=== PATIENT | female | born 1950 | race Native Hawaiian/Other Pacific Islander ===

== ENCOUNTER 2016-06-17 14:32 | Outpatient (CLI) | payer OTHER ==
[~2016-06-17 14:32] MED LIST: AMBILIFY PO; AMLO10TA PO; AMLO2.5T PO; AMOX500C85 PO; ASA LO-DOSE81 MG OR; ATEN50TA36 PO; BACL10TA4 PO; CLON0.5T36 PO; CLOP75TA2 PO; CYCL10TA35 PO; DENO60SO SC; GEODON60 MG PO; HYDR-3182 PO; HYDR25CA25 PO; HYDR25TA60 PO; MUPI2OIN2 TOP; MYRBETRIQ50 MG PO; NEXIUM40 M1 OR; OLAN2.5T2 PO; OLAN5TAB4 PO; ROBAXIN500 MG PO; SIMV40TA57; TOPAMAX100 MG OR; TOVIAZ 8MG8 MG PO; TRAM50TA PO; TRICOR48 MG PO; WELLBUTRIN150 MG PO; ZOLP10TA2 PO
[2016-06-17 15:35] LABS: PLATELET COUNT 260 K/uL (152-353)
[2016-06-17 16:41] LABS: POTASSIUM 3.8 mmol/L (3.6-5.2); SODIUM 139 mmol/L (136-145)
== END 2016-06-17 19:11 | disposition home or self-care (01) ==
LOC: LAB 14:32
PROVIDERS: Nurse Practitioner Family
DX: I10 Essential (primary) hypertension (principal); I50.9 Heart failure, unspecified; J44.1 Chronic obstructive pulmonary disease with (acute) exacerbation; E78.4 Other hyperlipidemia; Z79.899 Other long term (current) drug therapy; R11.2 Nausea with vomiting, unspecified
CPT/HCPCS: 80053; 80061; 83036; 84439; 84443; 85027; 86677

== ENCOUNTER 2016-08-01 08:03 | Outpatient (CLI) | payer OTHER ==
[~2016-08-01] VITALS: Ht 154.9 cm; Wt 103.0 kg
[2016-08-01 08:32] VITALS: BP 159/85; TEMP 98.7
== END 2016-08-01 10:00 | disposition home or self-care (01) ==
LOC: INF 08:03
DX: M81.0 Age-related osteoporosis without current pathological fracture (principal)
CPT/HCPCS: 36415; 82310; 96372; J0897

== ENCOUNTER 2016-09-27 11:14 | Emergency (ER) | payer OTHER ==
[~2016-09-27] VITALS: Ht 154.9 cm; Wt 99.8 kg
[2016-09-27 11:28] VITALS: TEMP 98.7
[2016-09-27 12:36] LABS: PLATELET COUNT 262 K/uL (152-353)
[2016-09-27 12:41] LABS: POTASSIUM 4.4 mmol/L (3.6-5.2); SODIUM 140 mmol/L (136-145)
[2016-09-27 13:28] VITALS: BP 158/70
== END 2016-09-27 13:55 | disposition home or self-care (01) ==
LOC: ED 11:14
PROVIDERS: Specialist
DX: N10 Acute pyelonephritis (principal); N20.0 Calculus of kidney
CPT/HCPCS: 36415; 80053; 81000; 85027; 87086; 87088; 96366; 96375; 99284; J0690; J1885

== ENCOUNTER 2016-09-29 14:05 | Outpatient (CLI) | payer OTHER ==
[2016-09-29 15:01] LABS: PLATELET COUNT 274 K/uL (152-353)
[2016-09-29 15:24] LABS: POTASSIUM 4.1 mmol/L (3.6-5.2); SODIUM 141 mmol/L (136-145)
== END 2016-09-29 19:19 | disposition home or self-care (01) ==
LOC: LAB 14:05
PROVIDERS: Nurse Practitioner Family
DX: E87.6 Hypokalemia (principal); I10 Essential (primary) hypertension; I50.9 Heart failure, unspecified; J44.1 Chronic obstructive pulmonary disease with (acute) exacerbation; E78.4 Other hyperlipidemia; E55.9 Vitamin D deficiency, unspecified; Z79.899 Other long term (current) drug therapy; Z51.81 Encounter for therapeutic drug level monitoring
CPT/HCPCS: 80053; 80061; 82306; 82607; 83036; 84436; 84443; 85027

== ENCOUNTER 2016-10-28 08:40 | Outpatient (CLI) | payer OTHER | END 2016-10-28 09:40 | disposition home or self-care (01) | LOC: LABW 08:40 | PROVIDERS: Physical Medicine & Rehabilitation Pain Medicine | DX: Z79.891 Long term (current) use of opiate analgesic (principal) | CPT/HCPCS: 36415; 80053 ==

== ENCOUNTER 2016-11-29 12:54 | Outpatient (CLI) | payer OTHER ==
[2016-11-29 13:54] LABS: PLATELET COUNT 267 K/uL (152-353)
== END 2016-11-29 13:55 | disposition home or self-care (01) ==
LOC: LAB 12:54
PROVIDERS: Nurse Practitioner Family
DX: N93.8 Other specified abnormal uterine and vaginal bleeding (principal)
CPT/HCPCS: 80053; 85027

== ENCOUNTER 2017-01-13 08:51 | Outpatient (CLI) | payer OTHER ==
[2017-01-13 09:43] LABS: POTASSIUM 3.7 mmol/L (3.6-5.2)
== END 2017-01-13 09:55 | disposition home or self-care (01) ==
LOC: LABW 08:51
PROVIDERS: Physical Medicine & Rehabilitation Pain Medicine
DX: Z79.891 Long term (current) use of opiate analgesic (principal); Z51.81 Encounter for therapeutic drug level monitoring
CPT/HCPCS: 36415; 80053

== ENCOUNTER 2017-02-20 09:41 | Outpatient (CLI) | payer OTHER ==
[2017-02-20 11:25] LABS: PLATELET COUNT 305 K/uL (152-353)
[2017-02-20 17:32] LABS: POTASSIUM 4.1 mmol/L (3.6-5.2)
== END 2017-02-20 19:16 | disposition home or self-care (01) ==
LOC: LABW 09:41
PROVIDERS: Psychiatry & Neurology Psychiatry
DX: F31.5 Bipolar disorder, current episode depressed, severe, with psychotic features (principal); F41.8 Other specified anxiety disorders; Z79.899 Other long term (current) drug therapy; Z51.81 Encounter for therapeutic drug level monitoring
CPT/HCPCS: 36415; 80053; 80061; 84443; 85027

== ENCOUNTER 2017-03-28 08:45 | Outpatient (CLI) | payer OTHER ==
[~2017-03-28] VITALS: Ht 154.9 cm; Wt 103.0 kg
[2017-03-28 09:54] VITALS: BP 137/75; TEMP 98.2
== END 2017-03-28 09:55 | disposition home or self-care (01) ==
LOC: INF 08:45
DX: M81.0 Age-related osteoporosis without current pathological fracture (principal)
CPT/HCPCS: 36415; 82310; 96372; J0897

== ENCOUNTER 2017-04-26 13:52 | Outpatient (CLI) | payer OTHER | END 2017-04-26 19:25 | disposition home or self-care (01) | LOC: LABW 13:52 | DX: R10.84 Generalized abdominal pain (principal); R19.7 Diarrhea, unspecified; R11.0 Nausea; I10 Essential (primary) hypertension; K64.8 Other hemorrhoids | CPT/HCPCS: 87015; 87045; 87324; 87328; 87329; 87449; 87899 ==

== ENCOUNTER 2017-05-17 16:13 | Outpatient (CLI) | payer OTHER | END 2017-05-17 21:49 | disposition home or self-care (01) | LOC: LABW 16:13 | DX: R19.7 Diarrhea, unspecified (principal); A04.71 Enterocolitis due to Clostridium difficile, recurrent | CPT/HCPCS: 87324; 87449 ==

== ENCOUNTER 2017-08-21 06:58 | Outpatient (CLI) | payer OTHER | END 2017-08-21 19:46 | disposition home or self-care (01) | LOC: LABW 06:58 | DX: Z79.899 Other long term (current) drug therapy (principal); Z51.81 Encounter for therapeutic drug level monitoring; F31.5 Bipolar disorder, current episode depressed, severe, with psychotic features | CPT/HCPCS: 36415; 80164 ==

== ENCOUNTER 2017-10-03 10:14 | Outpatient (CLI) | payer OTHER ==
[2017-10-03 10:40] LABS: POTASSIUM 3.9 mmol/L (3.6-5.2)
== END 2017-10-03 19:30 | disposition home or self-care (01) ==
LOC: LABW 10:14
PROVIDERS: Physical Medicine & Rehabilitation Pain Medicine
DX: Z79.899 Other long term (current) drug therapy (principal); Z51.81 Encounter for therapeutic drug level monitoring
CPT/HCPCS: 36415; 80053

== ENCOUNTER 2017-10-10 13:30 | Outpatient (CLI) | payer OTHER ==
[2017-10-10 13:54] LABS: PLATELET COUNT 291 K/uL (152-353)
[2017-10-10 14:24] LABS: POTASSIUM 4.5 mmol/L (3.6-5.2)
== END 2017-10-10 23:42 | disposition home or self-care (01) ==
LOC: LAB 13:30
PROVIDERS: Nurse Practitioner Family
DX: I10 Essential (primary) hypertension (principal); J44.1 Chronic obstructive pulmonary disease with (acute) exacerbation; E78.4 Other hyperlipidemia; F41.8 Other specified anxiety disorders; K21.9 Gastro-esophageal reflux disease without esophagitis; Z79.899 Other long term (current) drug therapy; Z51.81 Encounter for therapeutic drug level monitoring
CPT/HCPCS: 80053; 80061; 81000; 82306; 83036; 84436; 84443; 85027

== ENCOUNTER 2017-11-09 09:42 | Outpatient (CLI) | payer OTHER ==
[~2017-11-09] VITALS: Ht 154.9 cm; Wt 103.0 kg
== END 2017-11-09 19:16 | disposition home or self-care (01) ==
LOC: INF 09:42
DX: M81.0 Age-related osteoporosis without current pathological fracture (principal)
CPT/HCPCS: 36415; 82310; 96372; J0897

== ENCOUNTER 2018-01-15 08:21 | Outpatient (CLI) | payer OTHER ==
[2018-01-15 08:32] LABS: PLATELET COUNT 270 K/uL (152-353)
[2018-01-15 08:53] LABS: POTASSIUM 3.8 mmol/L (3.6-5.2)
== END 2018-01-15 19:19 | disposition home or self-care (01) ==
LOC: LABW 08:21
PROVIDERS: Psychiatry & Neurology Psychiatry
DX: F31.0 Bipolar disorder, current episode hypomanic (principal); F41.9 Anxiety disorder, unspecified; Z79.899 Other long term (current) drug therapy
CPT/HCPCS: 36415; 80053; 80061; 84443; 85027

== ENCOUNTER 2018-01-29 14:05 | Outpatient (CLI) | payer OTHER ==
[2018-01-29 15:28] LABS: PLATELET COUNT 263 K/uL (152-353)
[2018-01-29 15:49] LABS: POTASSIUM 3.9 mmol/L (3.6-5.2)
== END 2018-01-29 19:51 | disposition home or self-care (01) ==
LOC: LAB 14:05
PROVIDERS: Nurse Practitioner Family
DX: K21.9 Gastro-esophageal reflux disease without esophagitis (principal); E78.5 Hyperlipidemia, unspecified; I10 Essential (primary) hypertension; Z00.00 Encounter for general adult medical examination without abnormal findings; Z79.899 Other long term (current) drug therapy; R53.82 Chronic fatigue, unspecified; E55.9 Vitamin D deficiency, unspecified
CPT/HCPCS: 80053; 80061; 82306; 83036; 84439; 84443; 85027

== ENCOUNTER 2018-03-15 07:21 | Outpatient (CLI) | payer OTHER | END 2018-03-15 22:29 | disposition home or self-care (01) | LOC: LABW 07:21 | PROVIDERS: Nurse Practitioner Adult Health | DX: E78.2 Mixed hyperlipidemia (principal); I25.10 Atherosclerotic heart disease of native coronary artery without angina pectoris; Z79.899 Other long term (current) drug therapy | CPT/HCPCS: 36415; 80061; 80076 ==

== ENCOUNTER 2018-05-14 23:29 | Emergency (ER) | payer OTHER ==
[~2018-05-14] VITALS: Ht 154.9 cm; Wt 97.1 kg
[2018-05-15 01:21] VITALS: BP 151/72; TEMP 97.9
== END 2018-05-15 01:22 | disposition home or self-care (01) ==
LOC: ED 23:29
DX: R07.89 Other chest pain (principal); R07.81 Pleurodynia; W18.39XA Other fall on same level, initial encounter; Y92.89 Other specified places as the place of occurrence of the external cause
CPT/HCPCS: 96372; 99282; J1885

== ENCOUNTER 2018-05-23 07:20 | Outpatient (CLI) | payer OTHER | END 2018-05-23 19:07 | disposition home or self-care (01) | LOC: LAB 07:20 | PROVIDERS: Specialist | DX: E78.2 Mixed hyperlipidemia (principal); Z79.899 Other long term (current) drug therapy | CPT/HCPCS: 36415; 80061; 80076 ==

== ENCOUNTER 2018-05-29 08:54 | Outpatient (CLI) | payer OTHER ==
[~2018-05-29] VITALS: Ht 154.9 cm; Wt 103.0 kg
[2018-05-29 09:00] VITALS: BP 144/69; TEMP 98
== END 2018-05-29 09:40 | disposition home or self-care (01) ==
LOC: INF 08:54
DX: M81.0 Age-related osteoporosis without current pathological fracture (principal)
CPT/HCPCS: 36415; 82310; 96372; J0897

== ENCOUNTER 2018-06-18 09:14 | Outpatient (CLI) | payer OTHER ==
[2018-06-18 09:53] LABS: POTASSIUM 3.9 mmol/L (3.6-5.2)
== END 2018-06-18 22:57 | disposition home or self-care (01) ==
LOC: LABW 09:14
PROVIDERS: Physical Medicine & Rehabilitation Pain Medicine
DX: Z79.899 Other long term (current) drug therapy (principal)
CPT/HCPCS: 36415; 80053

== ENCOUNTER 2018-08-03 09:39 | Outpatient (CLI) | payer OTHER | END 2018-08-03 23:19 | disposition home or self-care (01) | LOC: MAMMO 09:39 | DX: Z12.31 Encounter for screening mammogram for malignant neoplasm of breast (principal) ==

== ENCOUNTER 2018-10-24 05:32 | Outpatient (CLI) | payer OTHER ==
[2018-10-24 05:58] LABS: PLATELET COUNT 293 K/uL (152-353)
[2018-10-24 17:08] LABS: POTASSIUM 3.8 mmol/L (3.6-5.2)
== END 2018-10-24 19:26 | disposition home or self-care (01) ==
LOC: LABW 05:32
PROVIDERS: Psychiatry & Neurology Psychiatry
DX: F31.0 Bipolar disorder, current episode hypomanic (principal); F41.8 Other specified anxiety disorders; Z79.899 Other long term (current) drug therapy
CPT/HCPCS: 36415; 80053; 80061; 84443; 85027

== ENCOUNTER 2018-11-02 12:15 | Outpatient (CLI) | payer OTHER | END 2018-11-02 21:02 | disposition home or self-care (01) | LOC: RAD 12:15 | DX: M51.36 Other intervertebral disc degeneration, lumbar region (principal) ==

== ENCOUNTER 2018-12-04 10:33 | Outpatient (CLI) | payer OTHER ==
[~2018-12-04] VITALS: Ht 154.9 cm; Wt 103.0 kg
[2018-12-04 10:40] VITALS: BP 142/78; TEMP 98.3
== END 2018-12-04 19:47 | disposition home or self-care (01) ==
LOC: INF 10:33
DX: M81.0 Age-related osteoporosis without current pathological fracture (principal)
CPT/HCPCS: 36415; 82310; 96372; J0897

== ENCOUNTER 2018-12-11 09:10 | Outpatient (CLI) | payer OTHER | END 2018-12-11 23:36 | disposition home or self-care (01) | LOC: LABW 09:10 | PROVIDERS: Nurse Practitioner Adult Health | DX: I25.10 Atherosclerotic heart disease of native coronary artery without angina pectoris (principal); E78.2 Mixed hyperlipidemia; Z79.899 Other long term (current) drug therapy | CPT/HCPCS: 36415; 80061; 80076 ==

== ENCOUNTER 2019-02-01 13:27 | Inpatient (IN) | payer OTHER ==
[~2019-02-01] VITALS: Ht 154.9 cm; Wt 99.4 kg
[2019-02-01 13:36] VITALS: BP 177/94; TEMP 98.5
[2019-02-01 14:14] LABS: PLATELET COUNT 413 K/uL (152-353)
[2019-02-01 14:20] LABS: POTASSIUM 3.5 mmol/L (3.6-5.2)
[2019-02-01 14:59] VITALS: BP 133/85
[2019-02-01 16:00] VITALS: BP 98/81; TEMP 98.4
[2019-02-01 16:55] VITALS: BP 98/81; TEMP 98.4; Ht 154.9 cm; Wt 99.4 kg
[2019-02-01 20:46] VITALS: BP 156/84; TEMP 97.9
[2019-02-01 23:52] VITALS: BP 152/88; TEMP 98.1
[2019-02-02] MEDS ORDERED: NEXIUM40 M1 PO (03:37)
[2019-02-02] MEDS ORDERED: LEVO0.0218 PO (03:38)
[2019-02-02] MEDS ORDERED: LISI10TA11 PO (03:39)
[2019-02-02] MEDS ORDERED: [UNRECOGNIZED DRUG - OTHER] PO (03:41)
[2019-02-02] MEDS ORDERED: METO-837 PO (03:41)
[2019-02-02] MEDS ORDERED: SEROQUEL XR300 MG PO (03:43)
[2019-02-02] MEDS ORDERED: ROPINIROLE1 MG PO (03:45)
[2019-02-02] MEDS ORDERED: AMBIEN5 MG PO (03:46)
[2019-02-02] MEDS ORDERED: TRAMADOL HCL100 MG PO ×2 (03:47→15:46)
[2019-02-02] MEDS ORDERED: BACLOFEN5 MG PO ×2 (03:48→15:39)
[2019-02-02] MEDS ORDERED: PROBIOTI1 PO (03:50)
[2019-02-02] MEDS ORDERED: VIT C/ACEROL500 MG PO (03:52)
[2019-02-02] MEDS ORDERED: D31000 UNIT PO (03:53)
[2019-02-02] MEDS ORDERED: FOLIC ACID400 MCG PO (03:57)
[2019-02-02] MEDS ORDERED: [UNRECOGNIZED DRUG - OTHER] PO (03:58)
[2019-02-02 04:00] VITALS: BP 161/50; TEMP 98.9
[2019-02-02 12:00] VITALS: BP 133/66; TEMP 98.5
[2019-02-02] MEDS ORDERED: PRAVACHOL20 MG PO (15:40)
[2019-02-02] MEDS ORDERED: CLON0.5T36 PO ×2 (15:42→15:43)
[2019-02-02 16:00] VITALS: BP 113/61; TEMP 98.6
[2019-02-02 20:00] VITALS: BP 126/56; TEMP 98.6
[2019-02-03 00:24] VITALS: BP 108/63; TEMP 98.5
[2019-02-03 03:54] VITALS: BP 130/70; TEMP 98.8
[2019-02-03 05:12] LABS: PLATELET COUNT 446 K/uL (152-353)
[2019-02-03 05:35] LABS: POTASSIUM 3.2 mmol/L (3.6-5.2)
[2019-02-03 08:00] VITALS: BP 141/75; TEMP 98.1
[2019-02-03 12:00] VITALS: BP 99/48; TEMP 98.3
[2019-02-03] MEDS ORDERED: AMOX500T5 PO (12:23)
[2019-02-03] MEDS ORDERED: BENZONATATE100 MG PO (12:24)
[2019-02-03] MEDS ORDERED: PRED10TA27 PO (12:25)
== END 2019-02-03 19:18 | disposition home or self-care (01) | DRG 190 ==
LOC: ED 13:27 → MED/SURG 15:30
PROVIDERS: Internal Medicine; ADMIT Family Medicine
DX: J44.0 Chronic obstructive pulmonary disease with (acute) lower respiratory infection (principal); J18.8 Other pneumonia, unspecified organism; N39.0 Urinary tract infection, site not specified; F31.89 Other bipolar disorder; B96.20 Unspecified Escherichia coli [E. coli] as the cause of diseases classified elsewhere; I25.10 Atherosclerotic heart disease of native coronary artery without angina pectoris; I10 Essential (primary) hypertension; E03.8 Other specified hypothyroidism; G89.4 Chronic pain syndrome; E87.6 Hypokalemia; I95.89 Other hypotension
CPT/HCPCS: 36415; 80048; 80053; 81000; 84443; 85027; 87040; 87070; 87077; 87086; 87088; 87186; 87205; 87502; 87651; 94640; 94664; 94760; 96360; 96365; 99284; J0456; J0696; J1650

== ENCOUNTER 2019-03-25 10:59 | Outpatient (CLI) | payer OTHER ==
[~2019-03-25 10:59] MED LIST changes: +AMBIEN5 MG PO; +AMOX500T5 PO; +BACLOFEN5 MG PO; +BENZONATATE100 MG PO; +D31000 UNIT PO; +FOLIC ACID400 MCG PO; +LEVO0.0218 PO; +LISI10TA11 PO; +METO-837 PO; +NEXIUM40 M1 PO; +PRAVACHOL20 MG PO; +PRED10TA27 PO; +PROBIOTI1 PO; +ROPINIROLE1 MG PO; +SEROQUEL XR300 MG PO; +TRAMADOL HCL100 MG PO; +VIT C/ACEROL500 MG PO; +[UNRECOGNIZED DRUG - OTHER] PO; +[UNRECOGNIZED DRUG - OTHER] PO
== END 2019-03-25 19:25 | disposition home or self-care (01) ==
LOC: RAD 10:59
DX: R06.02 Shortness of breath (principal); I25.10 Atherosclerotic heart disease of native coronary artery without angina pectoris; E78.49 Other hyperlipidemia; I10 Essential (primary) hypertension; Z87.891 Personal history of nicotine dependence; E66.01 Morbid (severe) obesity due to excess calories

== ENCOUNTER 2019-04-10 09:22 | Emergency (ER) | payer OTHER ==
[~2019-04-10] VITALS: Ht 154.9 cm; Wt 99.8 kg
[2019-04-10 09:30] VITALS: TEMP 97
[2019-04-10 09:59] LABS: PLATELET COUNT 287 K/uL (152-353)
[2019-04-10 10:01] LABS: POTASSIUM 3.7 mmol/L (3.6-5.2)
[2019-04-10 13:30] VITALS: BP 114/69
== END 2019-04-10 13:50 | disposition home or self-care (01) ==
LOC: ED 09:22
PROVIDERS: Emergency Medicine
DX: K43.9 Ventral hernia without obstruction or gangrene (principal); R10.31 Right lower quadrant pain
CPT/HCPCS: 36415; 80053; 82150; 83690; 85027; 96374; 96375; 99284; J1885; Q9963

== ENCOUNTER 2019-06-26 08:15 | Outpatient (CLI) | payer OTHER ==
[~2019-06-26] VITALS: Ht 157.5 cm; Wt 96.6 kg
[2019-06-26 09:55] VITALS: BP 139/84; TEMP 98.4
== END 2019-06-26 11:15 | disposition home or self-care (01) ==
LOC: INF 08:15
DX: M81.0 Age-related osteoporosis without current pathological fracture (principal)
CPT/HCPCS: 36415; 82310; 96372; J0897

== ENCOUNTER 2019-08-09 11:00 | Outpatient (CLI) | payer OTHER | END 2019-08-09 19:23 | disposition home or self-care (01) | LOC: MAMMO 11:00 | DX: R60.0 Localized edema (principal); E78.5 Hyperlipidemia, unspecified; R89.9 Unspecified abnormal finding in specimens from other organs, systems and tissues; Z12.31 Encounter for screening mammogram for malignant neoplasm of breast ==

== ENCOUNTER 2019-08-21 08:22 | Outpatient (CLI) | payer OTHER ==
[2019-08-21 08:54] LABS: PLATELET COUNT 251 K/uL (152-353)
[2019-08-21 09:08] LABS: POTASSIUM 3.9 mmol/L (3.6-5.2)
== END 2019-08-21 19:15 | disposition home or self-care (01) ==
LOC: LABW 08:22
PROVIDERS: Psychiatry & Neurology Psychiatry
DX: F31.60 Bipolar disorder, current episode mixed, unspecified (principal); F41.8 Other specified anxiety disorders; Z79.899 Other long term (current) drug therapy
CPT/HCPCS: 36415; 80053; 80061; 84443; 85027

== ENCOUNTER 2020-02-04 13:21 | Outpatient (CLI) | payer OTHER | END 2020-02-04 19:15 | disposition home or self-care (01) | LOC: LABW 13:21 | PROVIDERS: ATTEND Specialist | DX: E78.2 Mixed hyperlipidemia (principal); Z79.899 Other long term (current) drug therapy | CPT/HCPCS: 80061; 80076 ==

== ENCOUNTER 2020-06-23 09:06 | Outpatient (CLI) | payer OTHER ==
[~2020-06-23] VITALS: Ht 157.5 cm; Wt 99.8 kg
[2020-06-23 09:57] VITALS: BP 140/74; TEMP 98.4
== END 2020-06-23 10:10 | disposition home or self-care (01) ==
LOC: INF 09:06
PROVIDERS: ATTEND Internal Medicine Endocrinology, Diabetes & Metabolism
DX: M81.0 Age-related osteoporosis without current pathological fracture (principal)
CPT/HCPCS: 36415; 82310; 96372; J0897

== ENCOUNTER 2020-09-04 12:58 | Outpatient (CLI) | payer OTHER ==
[2020-09-14 07:07] LABS: PLATELET COUNT 303 K/uL (152-353)
== END 2020-09-04 17:00 | disposition home or self-care (01) ==
LOC: LABW 12:58
PROVIDERS: ATTEND Internal Medicine
DX: N18.32 Chronic kidney disease, stage 3b (principal); R82.998 Other abnormal findings in urine
CPT/HCPCS: 80053; 81000; 82043; 82330; 82570; 83735; 84100; 84155; 85027; 87077; 87086; 87088; 87186

== ENCOUNTER 2020-09-17 13:35 | Outpatient (CLI) | payer OTHER | END 2020-09-17 19:49 | disposition home or self-care (01) | LOC: MRI 13:35 | PROVIDERS: ATTEND Specialist | DX: R55 Syncope and collapse (principal); R47.81 Slurred speech; R42 Dizziness and giddiness | CPT/HCPCS: A9576 ==

== ENCOUNTER 2020-12-21 11:06 | Outpatient (CLI) | payer OTHER ==
[2020-12-21 11:32] LABS: PLATELET COUNT 292 K/uL (152-353)
[2020-12-21 11:56] LABS: POTASSIUM 3.9 mmol/L (3.6-5.2)
== END 2020-12-21 19:34 | disposition home or self-care (01) ==
LOC: LABW 11:06
PROVIDERS: ATTEND Nurse Practitioner
DX: F31.89 Other bipolar disorder (principal); F41.8 Other specified anxiety disorders; Z79.899 Other long term (current) drug therapy; N18.32 Chronic kidney disease, stage 3b
CPT/HCPCS: 36415; 80053; 80061; 81000; 82043; 82330; 82570; 83735; 84100; 84155; 84443; 85027

== ENCOUNTER 2021-01-28 09:20 | Outpatient (CLI) | payer OTHER ==
[~2021-01-28] VITALS: Ht 154.9 cm; Wt 99.8 kg
[2021-01-28 09:52] VITALS: BP 122/69; TEMP 98.2
== END 2021-01-28 19:17 | disposition home or self-care (01) ==
LOC: INF 09:20
PROVIDERS: ATTEND Internal Medicine Endocrinology, Diabetes & Metabolism
DX: M81.0 Age-related osteoporosis without current pathological fracture (principal)
CPT/HCPCS: 36415; 82310; 96372; J0897

== ENCOUNTER 2021-03-12 08:42 | Outpatient (CLI) | payer OTHER | END 2021-03-12 19:03 | disposition home or self-care (01) | LOC: LABW 08:42 | PROVIDERS: ATTEND Nurse Practitioner Adult Health | DX: E78.2 Mixed hyperlipidemia (principal); Z79.899 Other long term (current) drug therapy | CPT/HCPCS: 36415; 80061; 80076 ==

== ENCOUNTER 2021-07-14 09:24 | Outpatient (CLI) | payer OTHER | END 2021-07-14 21:39 | disposition home or self-care (01) | LOC: MAMMO 09:24 | PROVIDERS: ATTEND Nurse Practitioner Family | DX: Z12.31 Encounter for screening mammogram for malignant neoplasm of breast (principal) ==

== ENCOUNTER 2021-07-28 16:37 | Outpatient (CLI) | payer OTHER ==
[2021-07-28 16:50] LABS: PLATELET COUNT 281 K/uL (152-353)
[2021-07-28 16:55] LABS: POTASSIUM 3.8 mmol/L (3.6-5.2)
== END 2021-07-28 19:24 | disposition home or self-care (01) ==
LOC: LABW 16:37
PROVIDERS: ATTEND Specialist
DX: R00.2 Palpitations (principal)
CPT/HCPCS: 36415; 80048; 85027

== ENCOUNTER 2021-08-22 16:20 | Outpatient (CLI) | payer OTHER ==
[2021-08-22 16:40] LABS: POTASSIUM 4.1 mmol/L (3.6-5.2)
[2021-08-22 16:46] LABS: PLATELET COUNT 300 K/uL (152-353)
== END 2021-08-22 19:03 | disposition home or self-care (01) ==
LOC: LABW 16:20
PROVIDERS: ATTEND Specialist
DX: R06.09 Other forms of dyspnea (principal); R07.89 Other chest pain
CPT/HCPCS: 36415; 80048; 85027

== ENCOUNTER 2021-10-05 09:44 | Outpatient (CLI) | payer OTHER | END 2021-10-05 19:09 | disposition home or self-care (01) | LOC: RAD 09:44 | PROVIDERS: ATTEND Nurse Practitioner Family | DX: J98.8 Other specified respiratory disorders (principal); R05.9 Cough, unspecified ==

== ENCOUNTER 2022-01-03 10:39 | Outpatient (CLI) | payer OTHER ==
[2022-01-03 11:21] LABS: PLATELET COUNT 305 K/uL (152-353)
[2022-01-03 11:53] LABS: POTASSIUM 4.1 mmol/L (3.6-5.2)
== END 2022-01-03 18:57 | disposition home or self-care (01) ==
LOC: LABW 10:39
PROVIDERS: ATTEND Internal Medicine
DX: I12.9 Hypertensive chronic kidney disease with stage 1 through stage 4 chronic kidney disease, or unspecified chronic kidney disease (principal); N18.32 Chronic kidney disease, stage 3b; E78.49 Other hyperlipidemia; E03.8 Other specified hypothyroidism; D64.89 Other specified anemias; K21.9 Gastro-esophageal reflux disease without esophagitis; Z13.21 Encounter for screening for nutritional disorder; Z79.899 Other long term (current) drug therapy
CPT/HCPCS: 36415; 80053; 80061; 81000; 82043; 82306; 82330; 82570; 83036; 83735; 84100; 84156; 84436; 84443; 85027; 87077; 87086; 87088; 87186

== ENCOUNTER 2022-03-22 11:54 | Outpatient (CLI) | payer OTHER | END 2022-03-22 20:36 | disposition home or self-care (01) | LOC: LABW 11:54 | PROVIDERS: ATTEND Nurse Practitioner Adult Health | DX: E78.49 Other hyperlipidemia (principal); I25.10 Atherosclerotic heart disease of native coronary artery without angina pectoris; Z79.899 Other long term (current) drug therapy | CPT/HCPCS: 36415; 80061; 80076 ==

== ENCOUNTER 2022-05-03 09:04 | Outpatient (CLI) | payer OTHER ==
[2022-05-03 09:20] LABS: PLATELET COUNT 269 K/uL (152-353)
[2022-05-03 09:35] LABS: POTASSIUM 3.5 mmol/L (3.6-5.2)
== END 2022-05-03 21:55 | disposition home or self-care (01) ==
LOC: LABW 09:04
PROVIDERS: ATTEND Internal Medicine
DX: N18.32 Chronic kidney disease, stage 3b (principal)
CPT/HCPCS: 36415; 80053; 81000; 82043; 82330; 82570; 83735; 84100; 84156; 85027

== ENCOUNTER 2022-06-01 12:34 | Outpatient (CLI) | payer OTHER | END 2022-06-01 23:03 | disposition home or self-care (01) | LOC: CT 12:34 | PROVIDERS: ATTEND Nurse Practitioner Family | DX: R10.9 Unspecified abdominal pain (principal) ==

== ENCOUNTER 2022-07-26 09:19 | Outpatient (CLI) | payer OTHER | END 2022-07-26 19:58 | disposition home or self-care (01) | LOC: MAMMO 09:19 | PROVIDERS: ATTEND Nurse Practitioner Family | DX: Z12.31 Encounter for screening mammogram for malignant neoplasm of breast (principal) ==

== ENCOUNTER 2022-10-05 10:39 | Outpatient (CLI) | payer OTHER | END 2022-10-05 21:03 | disposition home or self-care (01) | LOC: LABW 10:39 | PROVIDERS: ATTEND Specialist | DX: E78.2 Mixed hyperlipidemia (principal); I25.10 Atherosclerotic heart disease of native coronary artery without angina pectoris; Z79.899 Other long term (current) drug therapy | CPT/HCPCS: 36415; 80061; 80076 ==

== ENCOUNTER 2022-10-12 09:37 | Outpatient (CLI) | payer OTHER | END 2022-10-12 19:06 | disposition home or self-care (01) | LOC: RAD 09:37 | PROVIDERS: ATTEND Nurse Practitioner Family | DX: Z13.820 Encounter for screening for osteoporosis (principal); N95.8 Other specified menopausal and perimenopausal disorders ==